=== PATIENT | female | born 1965 | race Caucasian/White ===

== ENCOUNTER 2019-01-09 20:11 | Inpatient (IN) | payer BC ==
[~2019-01-09 20:11] MED LIST: Dexamethasone 20 MG/5 ML VIAL ONE; Glycopyrrolate 0.2 MG/ML 5 ML SYRINGE ONE; Ketorolac Tromethamine 30 MG/ML VIAL ONE; Lidocaine 2% PF 5 ML VIAL ONE; Ondansetron PF 4 MG/2 ML Vial ONE; PHENYLEPHRINE-NS 100 MCG/ML 10 ML SYRINGE ONE; PROPOFOL 200 MG/20 ML VIAL ONE; Rocuronium Bromide 10 MG/ML (10ML VIAL) ONE; Succinylcholine Chloride 20 MG/ML 10 ml SYRINGE FS ONE; diphenhydrAMINE 50 MG/ML VIAL ONE; ePHEDrine 50 MG/ML VIAL ONE
[2019-01-09] MEDS ORDERED: Adacel (T-DAP) 0.5 ML SYRINGE ONE (20:14)
[2019-01-09] MEDS ORDERED: CEFAZOLIN 1 GM VIAL ONE (20:20)
[2019-01-09] MEDS ORDERED: Ondansetron PF 4 MG/2 ML Vial ONE (20:26)
[2019-01-09] MEDS ORDERED: Fentanyl 100 MCG/2 ML VIAL ONE ×3 (20:26→21:21)
[2019-01-09 20:28] LABS: #Basophils 0.1 thou/uL (0.0-0.2); #Eosinphils 0.2 thou/uL (0.0-0.7); #Lymphocytes 3.7 thou/uL (1.20-3.40); #Monocytes 1.2 thou/uL (0.11-0.59); #Neutrophils 11.1 thou/uL (1.40-6.50); %Basophils 0.6 % (0.0-1.0); %Eosinophils 1.3 % (0.0-10.0); %Lymphocytes 22.7 % (21.0-51.0); %Monocytes 7.4 % (0.0-10.0); %Neutrophils 68.1 % (42.0-75.0); Mean Corpuscular HGB CONC 33.8 g/dL (32.0-36.0); Mean Corpuscular Hemoglobin 32.3 pg (27.0-31.0); Mean Corpuscular Volume 95.4 fL (78.0-98.0); Mean Platelet Volume 7.4 fL (7.4-10.4); Platelet Count 278 thou/uL (130-400); RBC Distribution Width 11.1 % (11.5-14.5); Red Blood Cell (RBC) Count 4.33 mill/uL (4.20-5.40); White Blood Cell (WBC) Count 16.3 thou/uL (4.8-10.8)
[2019-01-09 20:33] LABS: Prothrombin Time 13.4 SEC (12.0-14.7)
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
[2019-01-09] MEDS ORDERED: Gentamicin Sulfate 300 MG, Admixture Fee 1 EACH in Sodium Chloride 0.9% 100 ML IVPB SCH (20:45)
[2019-01-09 20:47] LABS: ALT (SGPT) 19 U/L (8-55); AST (SGOT) 19 U/L (5-34); Albumin 4.2 g/dL (3.5-5.0); Alkaline Phosphatase 61 U/L (40-150); Anion Gap 11 mmol/L (10-20); BUN (Urea Nitrogen) 19 mg/dL (9.8-20.1); Bilirubin, Total 0.3 mg/dL (0.2-1.2); CK (CPK) 283 U/L (29-168); Calc. Creatinine Clearance 0 mL/min (70-130); Calcium 9.1 mg/dL (7.8-10.44); Carbon Dioxide 22 mmol/L (22-29); Chloride 107 mmol/L (98-107); Estimated GFR-MDRD 63; Globulin 2.8 g/dL (2.4-3.5); Glucose 164 mg/dL (70-105); Potassium 3.2 mmol/L (3.5-5.1); Sodium 137 mmol/L (136-145)
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
[2019-01-09] MEDS ORDERED: Ondansetron PF 4 MG/2 ML Vial IVP PRN (21:28)
[2019-01-09] MEDS ORDERED: Morphine 2 MG/ML SYRINGE SLOW IVP PRN (21:28)
[2019-01-09] MEDS ORDERED: Dextrose 50% Abboject 50 ML SYRINGE SLOW IVP PRN (21:28)
[2019-01-09] MEDS ORDERED: hydrALAZINE 20 MG/ML VIAL SLOW IVP PRN (21:28)
[2019-01-09] MEDS ORDERED: Dextrose 5% in Water 1,000 ML IV PRN (21:28)
[2019-01-09] MEDS ORDERED: Morphine 4 MG/ML VIAL SLOW IVP PRN (21:28)
[2019-01-09] MEDS ORDERED: Neomycin-Polymyxin 1 ML AMP ONE (21:37)
[2019-01-09] MEDS ORDERED: traMADol HCl 50 MG TAB PO PRN (21:37)
[2019-01-09 21:49] LABS: Bilirubin Negative (Negative); Blood, Urine Trace (Negative); Clarity Clear (Clear); Glucose, Urine (Dipstick) Normal (Negative); Leukocyte 75 Leu/uL (Negative); Nitrite Negative (Negative); Protein, Urine (Dipstick) 10 mg/dL (Neg-Trace); RBC/HPF None Seen HPF (0-3); Squamous Epithelial 0-3 HPF (0-3); Urobilinogen Normal mg/dL (Less than 2); WBC/HPF 0-3 HPF (0-3)
--- NOTE | 2019-01-09 21:49 | RAD ---
EXAM: 2 views of the left hip HISTORY: Left hip pain COMPARISON: None FINDINGS: 2 views of the left hip shows no evidence of acute fracture or dislocation. No degenerative changes are seen. No soft tissue swelling is present. IMPRESSION: No evidence of acute osseous abnormality.
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
--- NOTE | 2019-01-09 21:50 | RAD ---
EXAM: 2 views of the left femur HISTORY: Leg pain COMPARISON: None FINDINGS: There is no evidence of acute fracture or dislocation. No soft tissue swelling is seen. No degenerative changes are seen in the hip. IMPRESSION: No evidence of acute osseous abnormality.
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
--- NOTE | 2019-01-09 21:53 | RAD ---
EXAM: 2 views of the right foot HISTORY: Foot pain after trauma COMPARISON: None FINDINGS: 2 views of the right foot shows no evidence of acute fracture or dislocation of the bones o f the foot. There is subluxation of the tibiotalar joint and a partially visualized fracture of the distal fibula. No soft tissue swelling is seen. No degenerative changes are present. IMPRESSION: No evidence of acute osseous abnormality of the bones of the foot.
[2019-01-09 21:54] LABS: Bacteria/HPF None Seen HPF (None Seen)
[2019-01-09 21:54] LABS: Magnesium 1.7 mg/dL (1.6-2.6); Phosphorus 2.8 mg/dL (2.3-4.7)
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
[2019-01-09] MEDS ORDERED: Potassium Phosphate 30 MMOL in Sodium Chloride 0.9% 500 ML IVPB SCH (22:00)
[2019-01-09] MEDS ORDERED: traMADol HCl 50 MG TAB PO SCH (22:00)
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
[2019-01-09] MEDS ORDERED: Midazolam HCl 2 mg/2 ml Vial ONE (23:22)
[2019-01-09] MEDS ORDERED: Ketorolac Tromethamine 30 MG/ML VIAL IVP SCH (23:59)
[2019-01-09] MEDS ORDERED: Acetaminophen 1,000 MG in Premix Bag 1 BAG IVPB SCH (23:59)
[2019-01-10] MEDS ORDERED: Fentanyl 100 MCG/2 ML VIAL ONE ×2 (00:28→01:57)
[2019-01-10] MEDS ORDERED: CEFAZOLIN 1 GM VIAL ONE ×2 (00:45→00:47)
[2019-01-10] MEDS ORDERED: Albumin 5% 500 ML ONE (01:32)
[2019-01-10] MEDS ORDERED: Ondansetron PF 4 MG/2 ML Vial ONE (02:24)
[2019-01-10] MEDS ORDERED: HYDROmorphone 2 MG/ML VIAL ONE (03:02)
[2019-01-10] MEDS ORDERED: HYDROmorphone 2 MG/ML VIAL SLOW IVP PRN (03:07)
[2019-01-10] MEDS ORDERED: Meperidine HCl/PF 25 MG/ML VIAL SLOW IVP PRN (03:07)
[2019-01-10] MEDS ORDERED: Promethazine HCl 25 MG/ML VIAL IM PRN ×2 (03:07→03:23)
[2019-01-10] MEDS ORDERED: Ondansetron HCl/PF 4 MG/2 ML Vial IVP PRN (03:07)
[2019-01-10] MEDS ORDERED: Zolpidem Tartrate 5 MG TAB PO PRN (03:23)
[2019-01-10] MEDS ORDERED: diphenhydrAMINE 50 MG/ML VIAL IM/IV PRN (03:23)
[2019-01-10] MEDS ORDERED: Morphine Sulfate 100 MG in Dextrose 5% in Water 98 ML IV SCH (03:23)
[2019-01-10] MEDS ORDERED: diphenhydrAMINE 25 MG CAP PO PRN (03:23)
[2019-01-10] MEDS ORDERED: Naloxone HCl 0.4 mg/ml Vial IV PRN (03:23)
[2019-01-10] MEDS ORDERED: Ondansetron PF 4 MG/2 ML Vial IVP PRN (03:23)
[2019-01-10] MEDS: Sodium Chloride 0.9% 1,000 ML IV SCH ×2 (03:53→05:09)
[2019-01-10] MEDS: cefTRIAXone\\ROCEPHIN 2 GM in Sodium Chloride 0.9% 100 ML IVPB SCH (05:09)
[2019-01-10 05:57] VITALS: BMI 33.7
[2019-01-10] MEDS ORDERED: traMADol HCl 50 MG TAB PO SCH (06:00)
[2019-01-10 06:03] LABS: #Lymphocytes 0.4 thou/uL (1.20-3.40); #Monocytes 0.7 thou/uL (0.11-0.59); #Neutrophils 6.9 thou/uL (1.40-6.50); %Eosinophils 0.2 % (0.0-10.0); %Lymphocytes 4.6 % (21.0-51.0); %Monocytes 8.7 % (0.0-10.0); %Neutrophils 86.5 % (42.0-75.0); Hemoglobin 10.9 g/dL (12.0-16.0); Mean Corpuscular Volume 97.2 fL (78.0-98.0); Mean Platelet Volume 7.4 fL (7.4-10.4); Platelet Count 170 thou/uL (130-400); RBC Distribution Width 11.2 % (11.5-14.5); Red Blood Cell (RBC) Count 3.29 mill/uL (4.20-5.40)
[2019-01-10 06:19] LABS: Anion Gap 13 mmol/L (10-20); BUN (Urea Nitrogen) 15 mg/dL (9.8-20.1); Calc. Creatinine Clearance 125 mL/min (70-130); Calcium 8.1 mg/dL (7.8-10.44); Carbon Dioxide 18 mmol/L (22-29); Chloride 110 mmol/L (98-107); Estimated GFR-MDRD 73; Glucose 169 mg/dL (70-105); Potassium 4.2 mmol/L (3.5-5.1); Sodium 137 mmol/L (136-145)
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
[2019-01-10] MEDS: Acetaminophen 1,000 MG in Premix Bag 1 BAG IVPB SCH ×2 (08:18→13:24)
[2019-01-10] MEDS: Ketorolac Tromethamine 30 MG/ML VIAL IVP SCH ×2 (08:19→13:24)
[2019-01-10] MEDS: Gabapentin 300 MG CAP PO SCH ×3 (08:20→19:49)
[2019-01-10] MEDS: Senokot S 8.6-50 MG TAB PO SCH ×2 (08:20→19:49)
[2019-01-10] MEDS: Famotidine/PF 20 mg/2ml Vial SLOW IVP SCH ×2 (08:20→19:49)
[2019-01-10] MEDS: Polyethylene Glycol 3350 17 GM Packet PO SCH (08:20)
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
--- NOTE | 2019-01-10 09:01 | RAD ---
2 VIEW LEFT LEG: Date: 01/10/19 INDICATION: Intraoperative fluoroscopic imaging for fracture fixation. FINDINGS: There is an intramedullary meg with screw placement traversing fractured left tibia with comminution and displacement segmentally visualized. Comminuted fracture with associated displacement of the mid shaft of the fibula also present. IMPRESSION: Intraoperative fluoroscopic imaging for fracture fixation of the tibia. POS: C
[2019-01-10] MEDS ORDERED: Morphine 4 MG/ML VIAL SLOW IVP PRN (10:15)
[2019-01-10] MEDS ORDERED: traMADol HCl 50 MG TAB PO PRN (15:50)
[2019-01-10] MEDS: traMADol HCl 50 MG TAB PO SCH (17:21)
[2019-01-10] MEDS: Acetaminophen 500 MG TAB PO SCH (17:21)
[2019-01-10] MEDS: Ibuprofen 600 MG TAB PO SCH (17:21)
[2019-01-10] MEDS ORDERED: Sodium Chloride 0.9% 500 ML IV SCH (17:30)
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
[2019-01-10] MEDS: Zolpidem Tartrate 5 MG TAB PO SCH (19:49)
[2019-01-11] MEDS: Acetaminophen 500 MG TAB PO SCH ×5 (00:01→23:15)
[2019-01-11] MEDS: Ibuprofen 600 MG TAB PO SCH (00:01)
[2019-01-11] MEDS: traMADol HCl 50 MG TAB PO SCH ×5 (00:02→23:16)
[2019-01-11] MEDS ORDERED: Morphine 4 MG/ML VIAL SLOW IVP PRN (00:46)
[2019-01-11] MEDS ORDERED: Morphine 2 MG/ML SYRINGE SLOW IVP PRN ×2 (00:46→20:01)
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
[2019-01-11] MEDS ORDERED: Ketorolac Tromethamine 30 MG/ML VIAL IVP SCH (03:00)
[2019-01-11] MEDS: cefTRIAXone\\ROCEPHIN 2 GM in Sodium Chloride 0.9% 100 ML IVPB SCH (03:24)
[2019-01-11] MEDS: Sodium Chloride 0.9% 1,000 ML IV SCH ×2 (05:24→11:54)
[2019-01-11 05:35] LABS: #Lymphocytes 1.2 thou/uL (1.20-3.40); #Monocytes 0.7 thou/uL (0.11-0.59); #Neutrophils 3.6 thou/uL (1.40-6.50); %Basophils 0.1 % (0.0-1.0); %Eosinophils 0.8 % (0.0-10.0); %Lymphocytes 21.4 % (21.0-51.0); %Monocytes 11.9 % (0.0-10.0); %Neutrophils 65.7 % (42.0-75.0); Hemoglobin 8.4 g/dL (12.0-16.0); Mean Corpuscular HGB CONC 33.8 g/dL (32.0-36.0); Mean Corpuscular Volume 97.6 fL (78.0-98.0); Platelet Count 134 thou/uL (130-400); RBC Distribution Width 11.3 % (11.5-14.5); Red Blood Cell (RBC) Count 2.54 mill/uL (4.20-5.40); White Blood Cell (WBC) Count 5.4 thou/uL (4.8-10.8)
[2019-01-11] MEDS: Ketorolac Tromethamine 30 MG/ML VIAL IVP SCH ×2 (05:54→11:50)
[2019-01-11 05:56] LABS: Magnesium 1.8 mg/dL (1.6-2.6); Phosphorus 2.8 mg/dL (2.3-4.7)
--- NOTE | 2019-01-11 08:56 | RAD ---
RIGHT FORELEG TWO VIEWS: INDICATIONS: History of postop films status post ORIF of a right foreleg fracture. COMPARISON: 01/10/2019 FINDINGS: The instrumentation involving the distal fibular and tibial fractures is unchanged. The interfragmen tary screw of the distal tibia and the distal inner syndesmotic screw appear unchanged. There is sof t tissue gas seen within the soft tissues. There is an overlying fiberglass splint. A small amount of gas is present within the region of the right knee, which was present on a comparison radiograph d ated 01/09/2019. IMPRESSION: Interval open reduction and internal fixation of the distal tibia and fibula fractures with near adam omic fracture alignment. POS: OFF
[2019-01-11] MEDS: Polyethylene Glycol 3350 17 GM Packet PO SCH (09:00)
[2019-01-11] MEDS: Senokot S 8.6-50 MG TAB PO SCH ×2 (09:00→20:22)
[2019-01-11] MEDS: Gabapentin 300 MG CAP PO SCH ×3 (09:00→20:22)
[2019-01-11] MEDS: Famotidine/PF 20 mg/2ml Vial SLOW IVP SCH ×2 (09:00→20:23)
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
[2019-01-11] MEDS ORDERED: Mag-Al Plus 1200 MG/1200 MG/120 MG/30 ML UDCUP PO SCH (17:15)
[2019-01-11] MEDS: Ibuprofen 600 MG TAB PO PRN (17:26)
[2019-01-11] MEDS: Zolpidem Tartrate 5 MG TAB PO SCH (20:22)
[2019-01-11] MEDS: Famotidine 20 MG TAB PO SCH (20:41)
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
[2019-01-12] MEDS: cefTRIAXone\\ROCEPHIN 2 GM in Sodium Chloride 0.9% 100 ML IVPB SCH (02:14)
[2019-01-12] MEDS: Ibuprofen 600 MG TAB PO PRN (02:25)
[2019-01-12 06:01] LABS: #Eosinphils 0.1 thou/uL (0.0-0.7); #Monocytes 0.7 thou/uL (0.11-0.59); %Basophils 0.4 % (0.0-1.0); %Eosinophils 1.8 % (0.0-10.0); %Lymphocytes 14.6 % (21.0-51.0); %Monocytes 9.7 % (0.0-10.0); %Neutrophils 73.5 % (42.0-75.0); Hemoglobin 8.4 g/dL (12.0-16.0); Mean Corpuscular HGB CONC 33.7 g/dL (32.0-36.0); Mean Corpuscular Hemoglobin 32.5 pg (27.0-31.0); Mean Corpuscular Volume 96.6 fL (78.0-98.0); Mean Platelet Volume 6.7 fL (7.4-10.4); Platelet Count 145 thou/uL (130-400); RBC Distribution Width 11.2 % (11.5-14.5); Red Blood Cell (RBC) Count 2.57 mill/uL (4.20-5.40); White Blood Cell (WBC) Count 6.8 thou/uL (4.8-10.8)
[2019-01-12] MEDS: traMADol HCl 50 MG TAB PO SCH ×3 (06:16→17:56)
[2019-01-12] MEDS: Acetaminophen 500 MG TAB PO SCH ×3 (06:16→17:56)
[2019-01-12 07:31] LABS: Magnesium 1.8 mg/dL (1.6-2.6); Phosphorus 2.1 mg/dL (2.3-4.7)
[2019-01-12] MEDS ORDERED: SUMAtriptan Succinate 50 MG TAB PO PRN (08:11)
[2019-01-12] MEDS: Famotidine 20 MG TAB PO SCH ×2 (08:19→21:36)
[2019-01-12] MEDS: Polyethylene Glycol 3350 17 GM Packet PO SCH (08:19)
[2019-01-12] MEDS: Gabapentin 300 MG CAP PO SCH ×3 (08:19→21:39)
[2019-01-12] MEDS: Senokot S 8.6-50 MG TAB PO SCH ×2 (08:19→21:35)
--- NOTE | 2019-01-12 12:07 | MRI ---
MRI Lower Ext Jt Rt WO Con History: Knee dislocation Comparison: Knee radiograph January 09, 2019 Findings: Medial meniscus: Undersurface flap tear body and posterior horn medial meniscus extending t o the root attachment with gutter extrusion of the medial meniscal body 2-3 mm. Lateral meniscus: Undersurface tear of the body and posterior horn extending to the root attachment w hich is partially avulsed. Complete rupture of the proximal fibers posterior cruciate ligament and anterior cruciate ligament. M edial collateral ligament is completely torn from the medial femoral epicondyle with a 1.5 cm gap. Posterior oblique ligament is completely torn with a 1 cm gap from the medial femoral epicondyle. Complete tear of the popliteus tendon insertion at the lateral femoral epicondyle. Incomplete evaluat ed as the coronal images do not extend posterior enough is an osseous avulsion of the fibular styloid process at the popliteal fibular ligament insertion. High-grade tears at the insertion the bi ceps tendon and lateral collateral ligament although not complete. The medial meniscal femoral ligament is completely torn. The lateral meniscal femoral ligament is com pletely torn. High-grade tear of the proximal fibers lateral collateral ligament. The medial patellofemoral ligament origin is ruptured from the medial femoral epicondyle. Partial avulsion of the PCL footprint. Extensor mechanism: Quadriceps tendon patella and patellar tendons are intact. Cartilage: Patellofemoral compartment: Multifocal grade III chondromalacia with a few full-thickness cartilage f issures with early subcortical reactive marrow change. Medial compartment: No full-thickness defect. Mild chondral fraying. Lateral compartment: No full-thickness defects. Bones: Contusions of the posterior medial tibial rim and anterior tibial rim without significant jaylene cular surface depression. Avulsive edema of the posterior tibial metaphysis. Incomplete up ultrasound of the proximal fibular styloid process, incompletely evaluated. Partial tear semimembranosus tendon. High-grade tear the origin of the lateral head gastrocnemius wit h periosteal stripping posteriorly. Intramuscular hemorrhage and tears of the gastrocnemius, popliteus, anterior and lateral compartments as well as the soleus. Myotendinous tear of the popliteu s. Extensive deep fascial hemorrhage. There is gas and fluid throughout the knee joint with extensive fluid and stranding soft tissues from capsular rupture. Impression: 1. Undersurface flap tear body and posterior horn medial meniscus extending to the root attachment wi th 2 - 3 mm gutter extrusion. 2. Undersurface tear of the body posterior horn lateral meniscus extending to the root attachment whi ch is partially avulsed. 3. Full-thickness rupture proximal fibers posterior cruciate ligament and anterior cruciate ligament as well as footprint incomplete avulsive edema of the PCL. 4. Full-thickness rupture medial collateral ligament proper with a 1.5 cm gap from the medial femoral epicondyle. 5. Full-thickness rupture posterior oblique ligament with a 1 cm gap from the medial femoral epicondy le. 6. Tear of the popliteal fibular ligament which has an osseous avulsion at the fibular styloid proces s. 7. High-grade tear proximal fibers lateral collateral ligament as well as insertional partial tears o f the lateral collateral ligament and biceps tendon. 8. Circumferential capsular rupture with extension of fluid in the surrounding soft tissues. 9. Multifocal grade III and a few foci of grade IV chondromalacia of the patellofemoral compartment. 10. Partial tear of the pes anserine tendon insertion upon the tibial footprint. 11. Grade 2 tears of the anterior and lateral compartment musculature of the lower leg as well as hig h-grade near-complete tear of the head gastrocnemius with periosteal stripping on the posterior femoral diaphysis. 12. Complete ruptures of the medial meniscal femoral and lateral meniscal femoral ligaments. 13. Complete tear popliteus tendon origin with 4 - 5 mm retraction. 14. Rupture of the proximal interosseous membrane between the tibia and fibula. 15. Avulsed medial patellofemoral ligament from the medial femoral epicondyle with extensive intersti tial tearing.
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
[2019-01-12] MEDS ORDERED: Enoxaparin Sodium 30 MG/0.3 ML SYRINGE SC SCH (21:00)
[2019-01-12] MEDS: Zolpidem Tartrate 5 MG TAB PO SCH (21:36)
[2019-01-13] MEDS: traMADol HCl 50 MG TAB PO SCH ×5 (00:57→23:30)
[2019-01-13] MEDS: Acetaminophen 500 MG TAB PO SCH ×5 (00:57→23:31)
[2019-01-13 05:08] LABS: #Eosinphils 0.2 thou/uL (0.0-0.7); #Lymphocytes 0.9 thou/uL (1.20-3.40); #Monocytes 0.6 thou/uL (0.11-0.59); %Basophils 0.6 % (0.0-1.0); %Eosinophils 2.3 % (0.0-10.0); %Lymphocytes 13.4 % (21.0-51.0); %Monocytes 8.4 % (0.0-10.0); %Neutrophils 75.3 % (42.0-75.0); Hemoglobin 8.3 g/dL (12.0-16.0); Mean Corpuscular HGB CONC 34.3 g/dL (32.0-36.0); Mean Corpuscular Hemoglobin 33.1 pg (27.0-31.0); Mean Corpuscular Volume 96.4 fL (78.0-98.0); Platelet Count 194 thou/uL (130-400); RBC Distribution Width 11.2 % (11.5-14.5); Red Blood Cell (RBC) Count 2.52 mill/uL (4.20-5.40); White Blood Cell (WBC) Count 6.6 thou/uL (4.8-10.8)
[2019-01-13 05:43] LABS: Anion Gap 11 mmol/L (10-20); BUN (Urea Nitrogen) 10 mg/dL (9.8-20.1); Calc. Creatinine Clearance 165 mL/min (70-130); Calcium 8.3 mg/dL (7.8-10.44); Carbon Dioxide 26 mmol/L (22-29); Chloride 105 mmol/L (98-107); Estimated GFR-MDRD Greater than 90; Glucose 108 mg/dL (70-105); Magnesium 1.7 mg/dL (1.6-2.6); Phosphorus 3.1 mg/dL (2.3-4.7); Sodium 138 mmol/L (136-145)
[2019-01-13] MEDS ORDERED: Fentanyl 100 MCG/2 ML VIAL ONE (06:13)
[2019-01-13] MEDS ORDERED: Neomycin-Polymyxin 1 ML AMP ONE (06:59)
[2019-01-13] MEDS ORDERED: Magnesium Sulfate 3 GM in Sodium Chloride 0.9% 250 ML 250 ML IVPB SCH (07:00)
[2019-01-13] MEDS ORDERED: Promethazine HCl 25 MG/ML VIAL IM PRN (07:03)
[2019-01-13] MEDS ORDERED: Ondansetron HCl/PF 4 MG/2 ML Vial IVP PRN (07:03)
[2019-01-13] MEDS ORDERED: Promethazine HCl 25 MG/ML VIAL SLOW IVP PRN (07:03)
[2019-01-13] MEDS: Famotidine 20 MG TAB PO SCH ×2 (10:34→20:35)
[2019-01-13] MEDS: Senokot S 8.6-50 MG TAB PO SCH ×2 (10:34→20:35)
[2019-01-13] MEDS: Gabapentin 300 MG CAP PO SCH ×3 (10:35→20:35)
[2019-01-13] MEDS: Polyethylene Glycol 3350 17 GM Packet PO SCH (10:36)
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
--- NOTE | 2019-01-13 11:07 | RAD ---
RIGHT KNEE 2 VIEWS: Date: 01/13/19 HISTORY: Status post surgery. FINDINGS/IMPRESSION: Comparison made with exam of 01/09/19. There are postop changes and metallic hardware in the lower tibia. Interval improvement in the soft t issue air has occurred. No new acute fracture or dislocation is seen. POS: TPC
--- NOTE | 2019-01-13 11:09 | RAD ---
2 VIEWS RIGHT ANKLE: Date: 01/13/19 INDICATION: Postop. COMPARISON: Prior exam dated 01/09/19. FINDINGS: There is improved alignment of the ankle mortise. The mortise appears relatively symmetric on this AP projection. A mortise projection was not provided. Talar dome is normal appearing and well seated un leigh ann the tibial plafond. There are screw and plate fixation of the distal tibia and fibula fracture. T here is a syndesmotic screw involving the distal foreleg. Enthesopathic change is seen off the calcan eus. IMPRESSION: 1. Improved alignment of the ankle mortise. 2. Open reduction and internal fixation of distal tibia and fibula fracture and syndesmotic injury o f the distal foreleg. POS: OFF
[2019-01-13] MEDS ORDERED: PROPOFOL 200 MG/20 ML VIAL ONE (13:55)
[2019-01-13] MEDS ORDERED: Ondansetron PF 4 MG/2 ML Vial ONE (13:55)
[2019-01-13] MEDS ORDERED: Lidocaine 1% PF 5 ML VIAL ONE (13:55)
[2019-01-13] MEDS: CEFAZOLIN 2 GM in Premix Bag 1 BAG IVPB SCH ×2 (14:57→21:35)
[2019-01-13] MEDS: Ferrous Sulfate 325 MG TAB PO SCH (18:35)
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
[2019-01-13] MEDS: Ascorbic Acid 500 mg Chewable Tablet PO SCH (20:35)
[2019-01-13] MEDS: Zolpidem Tartrate 5 MG TAB PO SCH (20:35)
[2019-01-13] MEDS: Enoxaparin Sodium 30 MG/0.3 ML SYRINGE SC SCH (20:39)
[2019-01-14] MEDS: CEFAZOLIN 2 GM in Premix Bag 1 BAG IVPB SCH (05:22)
[2019-01-14] MEDS: traMADol HCl 50 MG TAB PO SCH ×4 (05:23→23:51)
[2019-01-14] MEDS: Acetaminophen 500 MG TAB PO SCH ×4 (05:24→23:51)
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
[2019-01-14 07:59] LABS: Hemoglobin 8.7 g/dL (12.0-16.0); Platelet Count 222 thou/uL (130-400)
[2019-01-14] MEDS: Senokot S 8.6-50 MG TAB PO SCH ×2 (08:54→20:58)
[2019-01-14] MEDS: Famotidine 20 MG TAB PO SCH ×2 (08:55→20:58)
[2019-01-14] MEDS: Ferrous Sulfate 325 MG TAB PO SCH ×2 (08:55→17:24)
[2019-01-14] MEDS: Ascorbic Acid 500 mg Chewable Tablet PO SCH ×2 (08:55→20:58)
[2019-01-14] MEDS: Gabapentin 300 MG CAP PO SCH ×3 (08:55→20:58)
[2019-01-14] MEDS: Enoxaparin Sodium 30 MG/0.3 ML SYRINGE SC SCH ×2 (08:55→20:58)
[2019-01-14] MEDS: Polyethylene Glycol 3350 17 GM Packet PO SCH (08:55)
--- NOTE | 2019-01-14 12:00 | EKG ---
Test Reason : Blood Pressure : / mmHG Vent. Rate : 094 BPM Atrial Rate : 094 BPM P-R Int : 194 ms QRS Dur : 090 ms QT Int : 392 ms P-R-T Axes : 058 007 062 degrees QTc Int : 490 ms Normal sinus rhythm Possible Left atrial enlargement Prolonged QT Abnormal ECG Confirmed by SCOTT GEIGER, KEIKO ([id number]), supervising editor trailer JYOTI PEREZ ([id number]) on 01/14/2019 12:00:32 PM Referred By: Confirmed By:KEIKO CHAVEZ MD
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
[2019-01-14] MEDS: Zolpidem Tartrate 5 MG TAB PO SCH (20:58)
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
[2019-01-15] MEDS: Acetaminophen 500 MG TAB PO SCH ×4 (06:09→23:36)
[2019-01-15] MEDS: traMADol HCl 50 MG TAB PO SCH ×4 (06:10→23:37)
[2019-01-15] MEDS: Ferrous Sulfate 325 MG TAB PO SCH ×2 (09:08→17:56)
[2019-01-15] MEDS: Ascorbic Acid 500 mg Chewable Tablet PO SCH ×2 (09:08→20:21)
[2019-01-15] MEDS: Famotidine 20 MG TAB PO SCH ×2 (09:10→20:20)
[2019-01-15] MEDS: Enoxaparin Sodium 30 MG/0.3 ML SYRINGE SC SCH ×2 (09:10→20:20)
[2019-01-15] MEDS: Gabapentin 300 MG CAP PO SCH ×3 (09:12→20:21)
[2019-01-15] MEDS: Senokot S 8.6-50 MG TAB PO SCH ×2 (09:14→20:21)
[2019-01-15] MEDS: Polyethylene Glycol 3350 17 GM Packet PO SCH (09:14)
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
[2019-01-15] MEDS: Zolpidem Tartrate 5 MG TAB PO SCH (20:21)
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
[2019-01-16] MEDS: traMADol HCl 50 MG TAB PO SCH ×4 (05:39→23:33)
[2019-01-16] MEDS: Acetaminophen 500 MG TAB PO SCH ×4 (05:39→23:33)
[2019-01-16] MEDS: Senokot S 8.6-50 MG TAB PO SCH ×2 (09:35→20:51)
[2019-01-16] MEDS: Gabapentin 300 MG CAP PO SCH ×3 (09:37→20:51)
[2019-01-16] MEDS: Ascorbic Acid 500 mg Chewable Tablet PO SCH ×2 (09:38→20:51)
[2019-01-16] MEDS: Ferrous Sulfate 325 MG TAB PO SCH ×2 (09:39→18:24)
[2019-01-16] MEDS: Enoxaparin Sodium 30 MG/0.3 ML SYRINGE SC SCH ×2 (09:43→20:51)
[2019-01-16] MEDS: Polyethylene Glycol 3350 17 GM Packet PO SCH (09:44)
--- NOTE | 2019-01-16 14:41 | HP ---
HISTORY OF PRESENT ILLNESS: This is a 53-year-old female, who was admitted to the hospital on January 09, after a severe traumatic event. She has had multiple surgeries secondary to some significant lower extremity injuries. Dr. Holland and Dr. Arcos have asked me to see Ms. Alejandre for treatment of a severe right knee dislocation. The patient, at this time, does not voice any specific complaints. For past medical history, past social history, medicines, allergies, past surgical history, and family history are all in the chart and unchanged. PHYSICAL EXAMINATION: VITAL SIGNS: At this time, she is afebrile. Vital signs are stable. GENERAL: On our exam, she is a well-developed female. She is not in acute distress. She is alert and cooperative, in fact she is in much better mood than I would expect for somebody who has had such a significant injury. EXTREMITIES: Her lower extremity today has a posterior long-arm splint, which is clean, dry, and intact. She is able to move all her toes up and down. They are warm and she does state that she has feeling, not only on the toe, but on the top of her foot. IMAGING DATA: An MRI scan was done at the end of last week, which shows her to have ACL, PCL, MCL, and LCL tears. She also has posterolateral corner injury. She also has bilateral meniscus tears. ASSESSMENT AND PLAN: A 53-year-old female, status post trauma with right knee multi-ligament knee dislocation. At this time, recommendation to Ms. Alejandre is to proceed on Wednesday with an open and arthroscopically-assisted surgery. My plan at this time is for primary repair of the PCL through bone tunnels followed by open primary repair of the medial collateral ligament, the medial meniscus, AND the posterior medial capsule. We then turned our attention laterally and primary repair of the popliteus, fibular collateral, and any injury to the biceps femoris, followed by augmentation with an allograft tendon to augment the fibular collateral and the popliteus itself. This will also recreate popliteal fibular ligaments. I have explained to her the procedure in detail as well as we explained to her all the risks and benefits, more specifically neurovascular damage including footdrop from this procedure. At this time, she is willing and wanting to proceed. We will continue with her Lovenox until and we will discontinue this after 's dose. We will also make her n.p.o. on after midnight. I have told Ms. Alejandre if there are any problems or questions if she has, I will be around later in the week and I will be more happy to answer all those for her. Job ID: [id number] [facility]
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
[2019-01-16] MEDS: Zolpidem Tartrate 5 MG TAB PO SCH (20:51)
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
[2019-01-17] MEDS: Cyclobenzaprine 10 MG TAB PO PRN (00:42)
[2019-01-17] MEDS: Ibuprofen 600 MG TAB PO PRN (00:42)
[2019-01-17] MEDS: Acetaminophen 500 MG TAB PO SCH ×3 (06:27→17:08)
[2019-01-17] MEDS: traMADol HCl 50 MG TAB PO SCH ×3 (06:27→17:08)
[2019-01-17] MEDS: Enoxaparin Sodium 30 MG/0.3 ML SYRINGE SC SCH ×2 (08:44→20:51)
[2019-01-17] MEDS: Senokot S 8.6-50 MG TAB PO SCH ×2 (08:45→20:52)
[2019-01-17] MEDS: Ibuprofen 600 MG TAB PO SCH ×3 (08:45→20:52)
[2019-01-17] MEDS: Gabapentin 300 MG CAP PO SCH ×3 (08:45→20:52)
[2019-01-17] MEDS: Ferrous Sulfate 325 MG TAB PO SCH ×2 (08:46→17:08)
[2019-01-17] MEDS: Ascorbic Acid 500 mg Chewable Tablet PO SCH ×2 (08:46→20:52)
[2019-01-17] MEDS: Polyethylene Glycol 3350 17 GM Packet PO SCH (08:49)
--- NOTE | 2019-01-17 10:02 | PRG ---
DATE OF SERVICE: 01/17/2019 SUBJECTIVE: Brianna is a 53-year-old female, who is postop day #7 from bilateral lower extremities open reduction and internal fixation secondary to massive segmental trauma of the right leg distal femur and left leg. She still complains of right heel pain as she had done yesterday and it got to the point where she had to take some medicine and continues to ice the right heel. OBJECTIVE: She is neurovascularly intact in the right lower extremity. She has good sensation. I see no strikethrough after removing her Altaf bandage, and I actually lifted the foot and lower leg out of the splint and I do not see any pressure points outwardly. The heel was inspected. No strikethrough, no bleeding identified. I do not see any wet spots. Generally laid the foot back into the splint, provided some space between the splint and heel and loosen the Altaf bandage significantly. We will see how this does. IMPRESSION: A 53-year-old female, postop day 6, bilateral lower extremities open reduction and internal fixation for massive segmental trauma. PLAN: Continue current care, and we will plan for a re-exploration of the right popliteal fossa on Wednesday and possible primary PCL inspection or repair at that time versus polyligamentous reconstruction of the MCL and meniscal repairs. Job ID: [id number]
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
[2019-01-17] MEDS: Zolpidem Tartrate 5 MG TAB PO SCH (20:52)
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
[2019-01-18] MEDS: Acetaminophen 500 MG TAB PO SCH ×4 (01:00→17:19)
[2019-01-18] MEDS: traMADol HCl 50 MG TAB PO SCH ×4 (01:00→17:19)
[2019-01-18] MEDS: Ibuprofen 600 MG TAB PO SCH ×4 (01:25→21:00)
[2019-01-18] MEDS: Gabapentin 300 MG CAP PO SCH ×3 (09:01→21:24)
[2019-01-18] MEDS: Ferrous Sulfate 325 MG TAB PO SCH ×2 (09:01→17:19)
[2019-01-18] MEDS: Ascorbic Acid 500 mg Chewable Tablet PO SCH ×2 (09:01→21:24)
[2019-01-18] MEDS: Senokot S 8.6-50 MG TAB PO SCH ×2 (09:01→21:21)
[2019-01-18] MEDS: Enoxaparin Sodium 30 MG/0.3 ML SYRINGE SC SCH ×2 (09:01→21:24)
[2019-01-18] MEDS: Polyethylene Glycol 3350 17 GM Packet PO SCH (09:56)
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
[2019-01-18] MEDS: Zolpidem Tartrate 5 MG TAB PO SCH (21:31)
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
[2019-01-19] MEDS: Acetaminophen 500 MG TAB PO SCH ×5 (01:00→23:47)
[2019-01-19] MEDS: traMADol HCl 50 MG TAB PO SCH ×5 (01:00→23:46)
[2019-01-19] MEDS: Ibuprofen 600 MG TAB PO SCH ×4 (01:05→20:36)
[2019-01-19] MEDS: Ferrous Sulfate 325 MG TAB PO SCH ×2 (08:37→17:55)
[2019-01-19] MEDS: Senokot S 8.6-50 MG TAB PO SCH ×2 (08:37→20:37)
[2019-01-19] MEDS: Polyethylene Glycol 3350 17 GM Packet PO SCH (08:38)
[2019-01-19] MEDS: Gabapentin 300 MG CAP PO SCH ×3 (08:38→20:36)
[2019-01-19] MEDS: Ascorbic Acid 500 mg Chewable Tablet PO SCH ×2 (08:38→20:36)
--- NOTE | 2019-01-19 10:46 | PRG ---
DATE OF SERVICE: 01/19/2019 SUBJECTIVE: Brianna is a 53-year-old female, who is doing relatively well after she had open reduction and internal fixation of bilateral lower extremities. Our plan tomorrow is a poly-ligamentous reconstruction on the right knee. The patient understands she will be n.p.o. after midnight. In preparation for this, I have held her Lovenox today. OBJECTIVE: She is in good spirits. She is alert and oriented to person, place, time, and situation. She is neurovascularly intact in the right lower extremity. No strikethrough noted in her dressings and her heel pain has improved greatly since readjusting her splint. IMPRESSION: A 53-year-old female, poly-ligamentous instability, right knee secondary to dislocation. PLAN: 1. Risks, benefits, options, alternatives, and rationale for proceeding with arthroscopic assisted poly-ligamentous reconstruction and meniscal repair versus debridement has been explained in very detail with the patient. She is ready to proceed. All questions were answered. No guarantee of outcome stated or implied. 2. Please see orders. Job ID: [id number]
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
[2019-01-19] MEDS: Zolpidem Tartrate 5 MG TAB PO SCH (20:36)
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
[2019-01-20] MEDS: Sodium Chloride 0.9% 1,000 ML IV SCH ×2 (01:01→16:48)
[2019-01-20] MEDS: Ibuprofen 600 MG TAB PO SCH ×4 (01:22→19:43)
[2019-01-20] MEDS: Acetaminophen 500 MG TAB PO SCH ×3 (05:15→17:03)
[2019-01-20] MEDS: traMADol HCl 50 MG TAB PO SCH ×2 (05:16→20:54)
[2019-01-20 05:49] LABS: #Eosinphils 0.2 thou/uL (0.0-0.7); #Lymphocytes 1.5 thou/uL (1.20-3.40); #Monocytes 0.7 thou/uL (0.11-0.59); #Neutrophils 4.9 thou/uL (1.40-6.50); %Basophils 0.5 % (0.0-1.0); %Eosinophils 2.7 % (0.0-10.0); %Lymphocytes 20.1 % (21.0-51.0); %Monocytes 9.7 % (0.0-10.0); %Neutrophils 67.1 % (42.0-75.0); Hemoglobin 9.8 g/dL (12.0-16.0); Mean Corpuscular HGB CONC 33.9 g/dL (32.0-36.0); Mean Corpuscular Hemoglobin 33.3 pg (27.0-31.0); Mean Corpuscular Volume 98.3 fL (78.0-98.0); Mean Platelet Volume 6.6 fL (7.4-10.4); Platelet Count 412 thou/uL (130-400); RBC Distribution Width 13.3 % (11.5-14.5); Red Blood Cell (RBC) Count 2.94 mill/uL (4.20-5.40); White Blood Cell (WBC) Count 7.3 thou/uL (4.8-10.8)
[2019-01-20 06:10] LABS: Anion Gap 11 mmol/L (10-20); BUN (Urea Nitrogen) 21 mg/dL (9.8-20.1); Calc. Creatinine Clearance 138 mL/min (70-130); Calcium 9.3 mg/dL (7.8-10.44); Carbon Dioxide 28 mmol/L (22-29); Chloride 104 mmol/L (98-107); Estimated GFR-MDRD 82; Glucose 98 mg/dL (70-105); Magnesium 2.1 mg/dL (1.6-2.6); Phosphorus 4.4 mg/dL (2.3-4.7); Potassium 4.2 mmol/L (3.5-5.1); Sodium 139 mmol/L (136-145)
[2019-01-20] MEDS ORDERED: Midazolam HCl 2 mg/2 ml Vial ONE (07:42)
[2019-01-20] MEDS ORDERED: Fentanyl 100 MCG/2 ML VIAL ONE ×5 (07:42→13:05)
[2019-01-20] MEDS ORDERED: Vancomycin HCl 1.5 GM in Sodium Chloride 0.9% 250 ML 300 ML IVPB SCH (08:00)
[2019-01-20] MEDS ORDERED: CEFAZOLIN 2 GM in Premix Bag 1 BAG IVPB SCH (08:00)
[2019-01-20] MEDS ORDERED: Ropivacaine HCl/PF 250 ML in Premix Bag 1 BAG NERVE BLCK SCH (08:42)
[2019-01-20] MEDS ORDERED: Promethazine HCl 25 MG/ML VIAL IM PRN ×2 (08:42→09:21)
[2019-01-20] MEDS ORDERED: Ondansetron PF 4 MG/2 ML Vial IVP PRN (08:42)
[2019-01-20] MEDS ORDERED: Zolpidem Tartrate 5 MG TAB PO PRN (08:42)
[2019-01-20] MEDS ORDERED: methylPREDNISolone Acetate 40 mg/ml Vial ONE (08:47)
[2019-01-20] MEDS ORDERED: Ondansetron HCl/PF 4 MG/2 ML Vial IVP PRN (09:21)
[2019-01-20] MEDS ORDERED: Promethazine HCl 25 MG/ML VIAL SLOW IVP PRN (09:21)
[2019-01-20] MEDS ORDERED: Ropivacaine 0.2% HCl/PF (40 MG/20 ML VIAL) ONE (15:36)
[2019-01-20] MEDS ORDERED: Bupivacaine HCl 0.5%/Epinephrine 1:200,000/PF 30 ml Vial ONE (15:36)
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
[2019-01-20] MEDS: Ferrous Sulfate 325 MG TAB PO SCH ×2 (16:45→18:06)
[2019-01-20] MEDS: Ascorbic Acid 500 mg Chewable Tablet PO SCH ×2 (16:46→20:55)
[2019-01-20] MEDS: Gabapentin 300 MG CAP PO SCH ×3 (16:46→20:55)
[2019-01-20] MEDS: Senokot S 8.6-50 MG TAB PO SCH ×2 (16:47→20:55)
[2019-01-20] MEDS: Polyethylene Glycol 3350 17 GM Packet PO SCH (16:47)
[2019-01-20] MEDS: Cyclobenzaprine 10 MG TAB PO PRN (17:03)
[2019-01-20] MEDS ORDERED: Morphine 4 MG/ML VIAL SLOW IVP PRN (17:48)
[2019-01-20] MEDS ORDERED: Ketorolac Tromethamine 30 MG/ML VIAL IVP SCH (18:00)
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
[2019-01-21] MEDS: Acetaminophen 500 MG TAB PO SCH ×3 (00:08→13:18)
[2019-01-21] MEDS: traMADol HCl 50 MG TAB PO SCH ×3 (01:23→14:53)
[2019-01-21] MEDS: Ibuprofen 600 MG TAB PO SCH ×3 (01:23→14:53)
[2019-01-21 04:05] LABS: #Lymphocytes 1.5 thou/uL (1.20-3.40); #Monocytes 0.9 thou/uL (0.11-0.59); #Neutrophils 7.2 thou/uL (1.40-6.50); %Basophils 0.2 % (0.0-1.0); %Eosinophils 0.3 % (0.0-10.0); %Lymphocytes 15.6 % (21.0-51.0); %Monocytes 9.6 % (0.0-10.0); %Neutrophils 74.3 % (42.0-75.0); Hemoglobin 9.3 g/dL (12.0-16.0); Mean Corpuscular HGB CONC 33.8 g/dL (32.0-36.0); Mean Corpuscular Hemoglobin 33.4 pg (27.0-31.0); Mean Platelet Volume 6.2 fL (7.4-10.4); Platelet Count 386 thou/uL (130-400); RBC Distribution Width 13.7 % (11.5-14.5); Red Blood Cell (RBC) Count 2.78 mill/uL (4.20-5.40); White Blood Cell (WBC) Count 9.6 thou/uL (4.8-10.8)
[2019-01-21 04:27] LABS: Anion Gap 12 mmol/L (10-20); BUN (Urea Nitrogen) 14 mg/dL (9.8-20.1); Calc. Creatinine Clearance 136 mL/min (70-130); Calcium 8.8 mg/dL (7.8-10.44); Carbon Dioxide 26 mmol/L (22-29); Chloride 103 mmol/L (98-107); Estimated GFR-MDRD 81; Glucose 99 mg/dL (70-105); Phosphorus 4.1 mg/dL (2.3-4.7); Potassium 4.2 mmol/L (3.5-5.1); Sodium 137 mmol/L (136-145)
[2019-01-21] MEDS: Ferrous Sulfate 325 MG TAB PO SCH (08:45)
[2019-01-21] MEDS: Gabapentin 300 MG CAP PO SCH ×2 (08:45→14:53)
[2019-01-21] MEDS: Ascorbic Acid 500 mg Chewable Tablet PO SCH (08:45)
[2019-01-21] MEDS: Senokot S 8.6-50 MG TAB PO SCH (08:45)
[2019-01-21] MEDS: Polyethylene Glycol 3350 17 GM Packet PO SCH (08:47)
[2019-01-21] MEDS ORDERED: Enoxaparin Sodium 30 MG/0.3 ML SYRINGE SC SCH (09:00)
[2019-01-21] MEDS ORDERED: Ropivacaine 0.2% 550 ML 550 ML NERVE BLCK SCH (14:52)
[2019-01-21 15:03] VITALS: BP 105/68; TEMP 97.9
[2019-01-21] MEDS ORDERED: Ketorolac Tromethamine 30 MG/ML VIAL IVP SCH (18:00)
--- NOTE | 2019-01-21 22:04 | DIS ---
DATE OF ADMISSION: 01/09/2019 DATE OF DISCHARGE: 01/21/2019 CONSULTING PHYSICIANS: 1. Dr. Holland. 2. Dr. Arcos. 3. Dr. Berrios. PROCEDURES: The patient went to the OR on January 10, 2019 for open reduction and internal fixation of the right tib-fib reduction and screw fixation of the right ankle, I and D of the right popliteal laceration, closure of right popliteal laceration, IM nail, left tibial shaft, I and D open tib-fib fracture, and open left fifth metatarsal base. She went to the OR again on January 13, 2019, and had I and D of the right knee wound. One more trip to the OR was on January 20, 2019, for which she had a right knee arthroscopy with partial meniscectomy, open repair of medial and lateral collateral ligaments. DISCHARGE DISPOSITION: Acute Rehab. DISCHARGE CONDITION: Satisfactory. PHYSICAL EXAMINATION: VITAL SIGNS: Temperature 98, pulse 81, respirations 16, oxygen saturation 96% on room air, blood pressure 105/67. GENERAL: Middle-aged female, sitting up in bed with no signs of acute distress. PULMONARY: Equal chest rise and fall. Clear breath sounds bilaterally. No signs of acute respiratory distress. CARDIAC: Regular rate and rhythm. No murmurs, gallops, or rubs. GI: Abdomen soft, nontender, nondistended. EXTREMITIES: Toes on bilateral lower extremities are warm with good capillary refill. Bilateral lower extremities with splint in place. Right knee with cooling device and block catheter in place. No signs of trauma to the bilateral upper extremities. Bilateral radial pulses intact. NEURO: GCS is 15. DISCHARGE INSTRUCTIONS: The patient is going to acute rehab. She is nonweightbearing on the bilateral lower extremities. Activity as tolerated. Regular diet with Zach b.i.d. Physical and occupational therapy as well as incentive spirometry and wheelchair. DISCHARGE MEDICATIONS: Include; 1. Tylenol. 2. Vitamin C. 3. Flexeril. 4. Lovenox. 5. Ferrous sulfate. 6. Gabapentin. 7. Ibuprofen. 8. Morphine. 9. MiraLAX. 10. Senokot S. 11. Tramadol. 12. Imitrex. 13. Zolpidem tartrate. FOLLOWUP APPOINTMENTS: The patient is to follow up with Dr. Arcos in 1 week. No need for followup with Dr. Andrews. This is merely a summary of the patient's hospitalization. For full details, please see her medical record in its entirety. Job ID: [id number]
== END 2019-01-21 16:34 | DRG 492 ==
LOC: ERS 20:11 → SURG B 21:50 → SDC 21:50 → SURG B 22:00
PROVIDERS: ADMIT Specialist; ATTEND Specialist
PROC: 0QSJ04Z Reposition Right Fibula with Internal Fixation Device, Open Approach (ICD-10-PCS; principal; 2019-01-10)
PROC: 0QSG04Z Reposition Right Tibia with Internal Fixation Device, Open Approach (ICD-10-PCS; 2019-01-10)
PROC: 0QSH06Z Reposition Left Tibia with Intramedullary Internal Fixation Device, Open Approach (ICD-10-PCS; 2019-01-10)
PROC: 3E1U38Z Irrigation of Joints using Irrigating Substance, Percutaneous Approach (ICD-10-PCS; 2019-01-13)
PROC: 0MSN0ZZ Reposition Right Knee Bursa and Ligament, Open Approach (ICD-10-PCS; 2019-01-20)
PROC: 0MSN0ZZ Reposition Right Knee Bursa and Ligament, Open Approach (ICD-10-PCS; 2019-01-20)
PROC: 0MSN0ZZ Reposition Right Knee Bursa and Ligament, Open Approach (ICD-10-PCS; 2019-01-20)
PROC: 0MSN0ZZ Reposition Right Knee Bursa and Ligament, Open Approach (ICD-10-PCS; 2019-01-20)
DX: S82.391B Other fracture of lower end of right tibia, initial encounter for open fracture type I or II (principal); S82.452B Displaced comminuted fracture of shaft of left fibula, initial encounter for open fracture type I or II; S82.252B Displaced comminuted fracture of shaft of left tibia, initial encounter for open fracture type I or II; S82.831B Other fracture of upper and lower end of right fibula, initial encounter for open fracture type I or II; S92.352B Displaced fracture of fifth metatarsal bone, left foot, initial encounter for open fracture; D62 Acute posthemorrhagic anemia; S83.104A Unspecified dislocation of right knee, initial encounter; E87.6 Hypokalemia; S83.411A Sprain of medial collateral ligament of right knee, initial encounter; S83.511A Sprain of anterior cruciate ligament of right knee, initial encounter; S83.521A Sprain of posterior cruciate ligament of right knee, initial encounter; V04.00XA Pedestrian on foot injured in collision with heavy transport vehicle or bus in nontraffic accident, initial encounter; Y92.79 Other farm location as the place of occurrence of the external cause
CPT/HCPCS: 27550; 36415; 51702; 71045; 72170; 76000; 80048; 80053; 81003; 81015; 82550; 83735; 84100; 85014; 85018; 85025; 85049; 85610; 85730; 86850; 86900; 86901; 87086; 90471; 90715; 93005; 96365; 96367; 96375; A4306; C1713; C1769; C1776; G0390; J0131; J0690; J0696; J1030; J1100; J1170; J1200; J1580; J1650; J1885; J2001; J2250; J2270; J2274; J2405; J2704; J2795; J3010; J3370; J3475; J3490; J7050; J7070; P9045; S0028

== ENCOUNTER 2019-04-14 07:52 | Day surgery (SDC) | payer BC ==
[2019-04-13 12:54] VITALS: BMI 28.8
[2019-04-14] MEDS ORDERED: Midazolam HCl 2 mg/2 ml Vial ONE ×2 (08:55→09:14)
[2019-04-14] MEDS ORDERED: Fentanyl 100 MCG/2 ML VIAL ONE ×4 (09:13→12:41)
[2019-04-14] MEDS ORDERED: Lidocaine 1% (PF) 30 ML VIAL ONE (09:13)
[2019-04-14] MEDS ORDERED: Midazolam HCl 2 mg/ml Syrup 5 ml UD Cup ONE (09:13)
--- NOTE | 2019-04-14 10:03 | RAD ---
RADIOGRAPH LEFT LEG TIBIA FIBULA TWO VIEWS: 04/14/2019 8:29 a.m. HISTORY: A 53-year-old female status post surgery for tibial and fibular traumatic fractures. COMPARISON: 01/09/2019 FINDINGS: The previously demonstrated acute traumatic, displaced, comminuted fracture of the distal tibial diap hysis has been reduced and stabilized with a new intramedullary nail with two proximal stabilization screws and two distal stabilization screws. There is approximately 20% to 25% shaft width anterior di splacement of the distal fragment but no significant displacement in the transverse dimension. The comminuted and displaced fracture of the mid fibular diaphysis has developed callus. There contin ues to be medial displacement of the distal fragment. IMPRESSION: Interval fixation of tibial shaft fracture with intramedullary nail. POS: CET
[2019-04-14] MEDS ORDERED: Ondansetron PF 4 MG/2 ML Vial ONE (10:57)
[2019-04-14] MEDS ORDERED: PHENYLEPHRINE-NS 100 MCG/ML 10 ML SYRINGE ONE (10:57)
[2019-04-14] MEDS ORDERED: PROPOFOL 200 MG/20 ML VIAL ONE (10:57)
[2019-04-14] MEDS ORDERED: Bupivacaine HCl 0.5%/Epinephrine 1:200,000/PF 30 ml Vial ONE (10:57)
[2019-04-14] MEDS ORDERED: Lidocaine 1% PF 5 ML VIAL ONE (10:57)
[2019-04-14] MEDS ORDERED: Meperidine HCl/PF 25 MG/ML VIAL ONE (12:03)
[2019-04-14] MEDS ORDERED: Ketorolac Tromethamine 30 MG/ML VIAL ONE (12:26)
[2019-04-14] MEDS ORDERED: HYDROcodone/Acetaminophen 5/325 mg Tablet ONE (13:25)
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
--- NOTE | 2019-04-14 21:17 | RAD ---
LEFT TIBIA AND FIBULA TWO VIEWS: 04/14/19 HISTORY: Intraoperative films. These show intramedullary meg placement stabilizing the distal tibial shaft fracture. IMPRESSION: Placement of intramedullary meg. POS: ALYSON
== END 2019-04-14 15:33 | disposition home or self-care (01) ==
LOC: SDC 07:52
PROVIDERS: ATTEND Orthopaedic Surgery
PROC: 0QSH04Z Reposition Left Tibia with Internal Fixation Device, Open Approach (ICD-10-PCS; principal; 2019-04-14)
PROC: 3E0T3BZ Introduction of Anesthetic Agent into Peripheral Nerves and Plexi, Percutaneous Approach (ICD-10-PCS; principal; 2019-04-14)
PROC: 0SPF04Z Removal of Internal Fixation Device from Right Ankle Joint, Open Approach (ICD-10-PCS; principal; 2019-04-14)
DX: S82.252M Displaced comminuted fracture of shaft of left tibia, subsequent encounter for open fracture type I or II with nonunion (principal); T84.9XXA Unspecified complication of internal orthopedic prosthetic device, implant and graft, initial encounter; G89.18 Other acute postprocedural pain; Z79.899 Other long term (current) drug therapy; Z88.2 Allergy status to sulfonamides; V09.9XXD Pedestrian injured in unspecified transport accident, subsequent encounter
CPT/HCPCS: 76000; C1713; C1769; J0670; J0690; J1885; J2001; J2175; J2250; J2405; J2704; J3010

== ENCOUNTER 2019-09-08 06:30 | Outpatient (CLI) | payer BC, OTHER ==
[2019-09-09 16:29] LABS: SARS-CoV-2 MS2 Positive; SARS-CoV-2 N Gene Negative; SARS-CoV-2 S Gene Negative; SARS-CoV-2 orf1ab Negative
== END 2019-09-08 06:31 | disposition home or self-care (01) ==
LOC: LABBT 06:30
PROVIDERS: ATTEND Orthopaedic Surgery
DX: Z01.812 Encounter for preprocedural laboratory examination (principal); Z11.59 Encounter for screening for other viral diseases; T85.848A Pain due to other internal prosthetic devices, implants and grafts, initial encounter
CPT/HCPCS: 87635; U0003

== ENCOUNTER 2019-09-13 10:08 | Day surgery (SDC) | payer BC ==
[2019-09-08 14:45] VITALS: BMI 28.5
[2019-09-13] MEDS ORDERED: Lidocaine 1% w/Epinephrine 1:100K 20 ML VIAL ONE (10:56)
[2019-09-13] MEDS ORDERED: Bupivacaine PF 0.5% 30 ML VIAL ONE (10:56)
[2019-09-13] MEDS ORDERED: Fentanyl 100 MCG/2 ML VIAL ONE (11:19)
[2019-09-13] MEDS ORDERED: Midazolam HCl 2 mg/2 ml Vial ONE (11:19)
[2019-09-13] MEDS ORDERED: Famotidine/PF 20 mg/2ml Vial ONE (11:20)
[2019-09-13] MEDS ORDERED: Ampicillin 2 GM VIAL ONE (11:26)
[2019-09-13] MEDS ORDERED: Ondansetron PF 4 MG/2 ML Vial ONE (16:14)
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
== END 2019-09-13 13:26 | disposition home or self-care (01) ==
LOC: SDC 10:08
PROVIDERS: ATTEND Orthopaedic Surgery
PROC: 0QPH04Z Removal of Internal Fixation Device from Left Tibia, Open Approach (ICD-10-PCS; principal; 2019-09-13)
DX: T84.84XA Pain due to internal orthopedic prosthetic devices, implants and grafts, initial encounter (principal); Z88.2 Allergy status to sulfonamides
CPT/HCPCS: J0290; J0690; J2250; J2405; J3010; S0020; S0028